=== PATIENT | male | born 1965 | race African-American/Black ===

== ENCOUNTER → 2017-03-02 | Outpatient (CLI) | payer OTHER ==
[~2017-03-02] MED LIST: ACETAMINOPHEN325 M1 PO; ADULT LOW DOSE81 MG PO; AMLODIPINE BESY10 MG PO; CEFDINIR300 MG PO; CIPROFLOXACIN500 M3; CIPROFLOXACIN500 M3 PO; HYDROCHLOROTHIA25 M2 PO; PRINIVIL20 MG PO
== END ==
LOC: CAT 10:34
DX: Z13.6 Encounter for screening for cardiovascular disorders (principal)